=== PATIENT | male | born 1935 | race Caucasian/White ===

== ENCOUNTER 2020-04-18 10:02 | Outpatient (CLI) | payer MEDICARE, SELFPAY ==
--- NOTE | 2020-04-18 11:12 | ECG_ITS ---
Measurements Intervals [place] Rate: 77 P: 17 MO: 116 QRS: 3 QRSD: 127 T: 79 QT: 400 QTc: 454 Interpretive Statements SINUS RHYTHM WITH SHORT MO INTERVAL EARLY PRECORDIAL R/S TRANSITION, CONSIDER RIGHT VENTRICULAR HYPERTROPHY VENTRICULAR PREEXCITATION/WPW BORDERLINE ST-T WAVE ABNORMALITY- HIGH LATERAL LEADS BASELINE ARTIFACT- I, III, AVL ABNORMAL ECG Electronically Signed On 04-18-2020 11:50:53 CDT by Migel Flores D.O.
[2020-04-18 12:03] LABS: Hematocrit 38.5 % (42.0-52.0); Hemoglobin 13.2 g/dL (14.0-18.0)
[2020-04-18 13:16] LABS: Blood Urea Nitrogen 45 mg/dL (9-20); Calcium 9.6 mg/dL (8.4-10.2); Carbon Dioxide 28 mmol/L (22-30); Chloride 100 mmol/L (98-107); Estimated Glomerular Filt Rate 32; Glucose 119 mg/dL (75-110); Potassium 4.3 mmol/L (3.4-5.0); Sodium 136 mmol/L (137-145)
[2020-04-18 18:37] LABS: Hemoglobin A1C 6.2 % (<5.7)
== END 2020-04-18 10:03 | disposition home or self-care (01) ==
PROVIDERS: Anesthesiology; PCP Nurse Practitioner Family; Visit Provider Urology
DX: I10 Essential (primary) hypertension (principal); N52.9 Male erectile dysfunction, unspecified; E61.1 Iron deficiency; R94.31 Abnormal electrocardiogram [ECG] [EKG]
CPT/HCPCS: 36415; 80048; 83036; 85014; 85018; 87077; 87086; 87088; 87186; 93005

== ENCOUNTER 2020-05-06 00:08 | Outpatient (CLI) | payer MEDICARE, SELFPAY ==
[2020-05-06 15:58] LABS: SARS-CoV-2 RNA PCR Negative
== END 2020-05-06 00:09 | disposition home or self-care (01) ==
LOC: ANHCOVIDDT 00:09
PROVIDERS: Visit Provider Urology
DX: Z01.818 Encounter for other preprocedural examination (principal); Z11.59 Encounter for screening for other viral diseases
CPT/HCPCS: 87635; C9803; U0003

== ENCOUNTER 2020-05-08 00:35 | Day surgery (SDC) | payer MEDICARE, SELFPAY ==
[2020-04-18 11:17] VITALS: BP 131/68; PULSE 75; RESP 18; TEMP 37.2; O2SAT 98; BMI 29.6
[2020-05-08] VITALS (8 sets, daily range): BP systolic 107–151; BP diastolic 66–76; PULSE 67–75; RESP 12–18; TEMP 36.4–36.6; O2SAT 99–100
[2020-05-08] MEDS: LACTATED RINGERS 1,000 ML 30 ML IV CONT ×2 (11:15→15:22)
[2020-05-08] MEDS: GENTAMICIN SULFATE IVPB (11:15)
[2020-05-08] MEDS: DEXTROSE 5% IVPB (11:15)
--- NOTE | 2020-05-08 11:27 | WPDANESEPPF ---
Anes - Initial Pre Proc Eval Procedure: Operation Date: 05/08/20 12:00 Proposed Procedures p Insertion Inflatable Penile Implant - Fransisca Worthy MD Date/Time: 05/08/20 11:27 Surgeon: Fransisca Worthy MD Pre Op Diagnosis: E D Patient Data Age: 84 Gender: M Height: 6 ft 1 in Weight: 101.8 kg Last Vital Signs Temp 37.2 C 04/18/20 11:17 Pulse 75 04/18/20 11:17 Resp 18 04/18/20 11:17 BP 131/68 04/18/20 11:17 Pulse Ox 98 04/18/20 11:17 Allergies Allergy/AdvReac Type Severity Reaction Status Date / Time Sulfa (Sulfonamide Allergy Severe RASH Verified 05/08/20 11:27 Antibiotics) ? ??BP PILL Allergy Severe RASH Uncoded 05/08/20 11:27 Home Medications Medication Instructions Recorded Confirmed Type amlodipine 10 mg PO HS 04/18/20 04/18/20 History fenofibrate micronized 67 mg PO DAILY 04/18/20 04/18/20 History ferrous sulfate 325 mg PO HS 04/18/20 04/18/20 History losartan-hydrochlorothiazide 1 tablet PO DAILY 04/18/20 04/18/20 History Patient hx anesthesia problems: none Family hx anesthesia problems: none PMFSH Past Medical History Medical History (Updated 05/08/20 @ 11:27 by Tyrone Pena MD) HTN (hypertension) Morbid obesity Surgical History Surgical History (Updated 05/08/20 @ 11:27 by Tyrone Pena MD) History of cholecystectomy Social History Social History (Updated 05/08/20 @ 11:28 by Tyrone Pena MD) Smoking status: Former smoker Anes - Eval Final PreProcedure Day of Procedure 05/08/20 11:27 Patient weight: obese Heart: regular rate and rhythm Lungs: clear to auscultation Airway: Mallampati scale class II and other (upper denture. lower partial) Neurological: alert and oriented Last oral intake: >/= 8 hours ASA classification: III Emergent: no Anesthetic plan: proceed Anesthesia type and monitoring: general LMA and standard monitoring Informed Consent: The patient's anesthetic plan and its attendant risks and benefits were discussed with the patient/family/POA. Questions were solicited and answers provided to the satisfaction of the patient/family/POA.
--- NOTE | 2020-05-08 12:32 | PM.HPGS ---
History of Present Illness History of Present Illness Consent: Risks, benefits, and alternatives have been discussed and questions answered. Patient agrees to proceed with procedure. Chief complaint: E D Narrative: Wilfred Delarosa is a 84 year old male Review of Systems Review of Systems: All systems reviewed & are unremarkable except as noted in HPI and below PMFSH Past Medical History Medical History (Updated 05/08/20 @ 12:33 by Fransisca Worthy MD) HTN (hypertension) Morbid obesity Surgical History Surgical History (Updated 05/08/20 @ 11:27 by Tyrone Pena MD) History of cholecystectomy Social History Social History (Updated 05/08/20 @ 11:28 by Tyrone Pena MD) Smoking status: Former smoker Meds Home Medications and Allergies Home Medications Medication Instructions Recorded Confirmed Type amlodipine 10 mg PO HS 04/18/20 05/08/20 History fenofibrate micronized 67 mg PO DAILY 04/18/20 05/08/20 History ferrous sulfate 325 mg PO HS 04/18/20 05/08/20 History losartan-hydrochlorothiazide 1 tablet PO DAILY 04/18/20 05/08/20 History Allergies Allergy/AdvReac Type Severity Reaction Status Date / Time Sulfa (Sulfonamide Allergy Severe RASH Verified 05/08/20 11:27 Antibiotics) ? ??BP PILL Allergy Severe RASH Uncoded 05/08/20 11:27 Vital Signs Vital Signs - 24 hr 05/08/20 11:30 Temperature 36.4 C L Pulse Rate 75 Respiratory Rate 18 Blood Pressure 107/70 Pulse Oximetry 99 Exam Const: General: no acute distress HENMT: Ears: TM's normal bilaterally Resp: Auscultation: clear to auscultation bilaterally GI: GI Palp: Yes Soft to palpation : Male General Exam: Yes normal external exam Assessment and Plan Assessment and plan (1) Erectile dysfunction due to arterial insufficiency: Code(s): N52.01 - Erectile dysfunction due to arterial insufficiency Status: Acute Assessment and Plan: Plan IPP - risks, benefits and alternatives discussed
--- NOTE | 2020-05-08 15:00 | SUR.OPER ---
EBL:10cc
--- NOTE | 2020-05-08 16:35 | SUR.PHASEII ---
[id number] spoke with son(janet) and updated him on pt status, heading up here to pick him up
--- NOTE | 2020-05-08 19:03 | OP_ITS ---
DATE OF PROCEDURE: 05/08/2020 PREOPERATIVE DIAGNOSIS: 1. Erectile dysfunction. POSTOPERATIVE DIAGNOSIS: 1. Erectile dysfunction. PROCEDURE PERFORMED: 1. Insertion of 3-piece inflatable penile prosthesis. 2. Artificial erection with pharmacologic agent. INDICATION FOR PROCEDURE: The patient is an 84-year-old gentleman, who presented with erectile dysfunction. Discussed options, risks and alternatives. He agreed to proceed with implantation of a recent inflatable penile prosthesis. DESCRIPTION OF PROCEDURE: Informed consent was obtained. The patient was taken to the operating room, given preoperative IV antibiotics, vancomycin and gentamicin. Additionally, the patient has been taking oral antibiotics at home for the past week due to a preoperative urinary tract infection and the patient does intermittent catheterization. The patient was then prepped with Betadine scrub and paint followed by ChloraPrep. We then placed drapes. We again prepped with ChloraPrep. We then performed artificial erection using dilute lidocaine that revealed a symmetric erection. We made a 3 cm ventral penoscrotal incision. We dissected down to the corporal bodies. We opened the right corporal body. It was clear from surrounding structures. Stay sutures were placed with 2-0 Vicryl sutures, 2-0 PDS suture. We then opened the corporal bodies. We then dilated from #9 to #12 Flood dilators. We then irrigated, there was no injury. We measured 9.5 cm distally and 9.5 cm proximally. We then performed an identical procedure on the contralateral side. We then placed dilators proximally, bilaterally and there was no crossover irrigated and there was no distal urethral injury. We then elected to place an 18 cm LGX device with 1 cm rear tips. The device was inserted using a surrogate reservoir, inflated and sat nicely. We then deflated. We closed the pre-placed corporotomy sutures. We then inflated again and sat nicely. We then made a right lower quadrant incision after injection of Marcaine attached down to the external oblique fascia. The fascia was opened in a subrectus space and placed a 100 cc flat reservoir filled with 80 cc. It sat nicely into the muscle. We then irrigated copiously. The fascia was closed with pre-placed 0 Vicryl sutures. We then made a subdartos midline pouch for the pump. It sat nicely in the inferior scrotum. The patient did have rather thin skin likely due to his age and there was some bruising of the scrotum, however it sat nicely with what appeared to be sufficient skin coverage. We brought the tubing up to the abdominal incision. Using the Quick connect, we then connected the reservoir to the pump. We then cycled the device and is set nicely. We closed the scrotum with longitudinal and transverse 3-0 Vicryl sutures. The skin was then closed with a 3-0 Monocryl horizontal mattress closure. The right lower incision was closed with a 2-0 Vicryl to the Priti's, 3-0 Vicryl deep dermal and a 4-0 Monocryl subcuticular closure to the skin. Glue was placed over both incisions. The compressive dressing was placed. The patient was then awakened, taken to recovery room in stable condition. FLUIDS: Per anesthesia. COMPLICATIONS: None. ESTIMATED BLOOD LOSS: Minimal. FOLLOWUP: The patient will be discharged home. He will remove his dressing tomorrow. He will remove his catheter in 48 hours, and then resume intermittent catheterization. Carrillo I MT: Crystal ALEX
== END 2020-05-08 17:51 | disposition home or self-care (01) ==
PROVIDERS: PCP Nurse Practitioner Family; Visit Provider Urology
PROC: (CPT 54401; principal; 2020-05-08 12:00)
DX: N52.01 Erectile dysfunction due to arterial insufficiency (principal); N48.6 Induration penis plastica; I10 Essential (primary) hypertension; E66.01 Morbid (severe) obesity due to excess calories; Z88.2 Allergy status to sulfonamides; Z87.891 Personal history of nicotine dependence
CPT/HCPCS: 54401; J1100; J1580; J2405; J2704; J3010; J3370; J7030; J7120